=== PATIENT | female | born 1980 | race Caucasian/White ===

== ENCOUNTER → 2024-07-04 | Emergency (ER) | payer SELFPAY ==
[~2024-07-04] VITALS: Ht 170.2 cm; Wt 77.0 kg
[2024-07-04 20:49] VITALS: BP 117/71; PULSE 78; RESP 18; O2SAT 97
[2024-07-04 21:50] VITALS: TEMP 98.1
[2024-07-04] MEDS: ACETAMINOPHEN 325MG TABLET PO ONE (21:50)
== END ==
LOC: ER 20:37
DX: M25.572 Pain in left ankle and joints of left foot (principal)
CPT/HCPCS: 99283